=== PATIENT | female | born 1995 | race Caucasian/White ===

== ENCOUNTER 2018-02-14 21:09 | Emergency (ER) | payer SELFPAY, OTHER ==
[2018-02-14] MEDS: methylPREDNISolone INJ 125 MG/2 ML VIAL (J2930) IV (21:45)
[2018-02-14] MEDS: FAMOTIDINE IV BAG 20 MG in APPROPRIATE DILUENT 1 EA IV (21:45)
[2018-02-14] MEDS: diphenhydrAMINE INJ 50MG/ML VIAL (J1200) IV (21:45)
[2018-02-14] MEDS: diphenhydrAMINE INJ 50MG/ML VIAL (J1200) IM (23:17)
== END 2018-02-14 23:53 | disposition home or self-care (01) ==
LOC: M ED 21:09
DX: L50.0 Allergic urticaria (principal)
CPT/HCPCS: J1200